=== PATIENT | female | born 1960 | race Caucasian/White ===

== ENCOUNTER → 2018-03-07 | Outpatient (CLI) | payer MEDICARE, OTHER | LOC: M.ULTRA 10:11 | DX: K76.0 Fatty (change of) liver, not elsewhere classified (principal) ==

== ENCOUNTER → 2018-12-11 | Outpatient (CLI) | payer MEDICARE, OTHER ==
--- NOTE | 2018-12-13 00:36 | SLEEP ---
[address] [address] SLEEP STUDY REPORT Name: CHRISTI CHU Room: [facility]#: [id number] Admission: 12/11/18 Attend Phys: Roro Cohen MD Discharge: Date of : 64 Report #: [id number] THIS REPORT FOR: //name// CC: Chan Cohen MD This study has been reviewed in its entirety by a board certified sleep specialist DATE OF SERVICE: 12/11/2018 SLEEP STUDY: ATTENDING PHYSICIAN: Dr. Roro Cohen. The patient is 60 years old who weighs 192 pounds with a BMI of 33. The patient's [place] score was 5. The patient underwent a sleep study performed at [facility]. During the night study, the patient spent 391 minutes in bed and slept for 220 minutes with a sleep efficiency of 56%. Sleep latency was prolonged at 148 minutes. REM sleep was 275 minutes. Overall, sleep architecture showed normal stage 1 and stage 2 sleep, increased N3 sleep and increased REM sleep, which was 31% of the total sleep time. During the night study, the patient had 1 obstructive apnea. There were no mixed or central apneas. There were 61 hypopneas. The patient's apnea hypopnea index was 17 per hour with a REM index of 47.5 per hour and a supine index of 17 per hour as well. EKG monitoring revealed an average heart rate of 56 beats per minute. No sustained arrhythmias observed. No PLMs were observed. Nocturnal oximetry study revealed an average oxygen saturation of 94% with the lowest of 82%. Ten minutes were spent in oxygen saturation of less than 89%. Due to reduced sleep efficiency, CPAP could not be initiated. IMPRESSION: 1. Moderate sleep apnea-hypopnea syndrome with worsening during REM sleep. Total AHI of 17 per hour with a REM AHI of 47 per hour. 2. Reduced sleep efficiency of 56%, resulting from sleep onset [place] [address] SLEEP STUDY REPORT Name: CHRISTI CHU Room: [facility]#: [id number] Admission: 12/11/18 Attend Phys: Roro Cohen MD Discharge: Date of : 64 Report #: [id number] 3. No clinically significant periodic limb movements. 4. Mild nocturnal hypoxia secondary to obstructive sleep apnea. RECOMMENDATIONS: 1. The patient would benefit from return to the sleep lab for in-lab titration study. 2. Once the patient is optimally treated, then follow up in 4-6 weeks to assess compliance with CPAP and to document clinical improvement. 3. Weight loss strongly advised. 4. Avoid ESTHETICIAN FACIALIST depressants. 5. Cautioned regarding driving until symptoms of sleep apnea resolve with the above recommendations. 6. If patient's insomnia is a chronic condition, then it should be treated according to the etiology. <ELECTRONICALLY SIGNED> By: Maximilian Brand MD 12/13/18 0036 [id number] Brand MD /subha
== END ==
LOC: M.SLEEPLAB 20:00
DX: G47.33 Obstructive sleep apnea (adult) (pediatric) (principal); R09.02 Hypoxemia; G47.10 Hypersomnia, unspecified

== ENCOUNTER → 2019-07-28 | Outpatient (CLI) | payer MEDICARE, OTHER ==
--- NOTE | 2019-07-29 14:33 | SLEEP ---
[address] [address] SLEEP STUDY REPORT Name: CHRISTI CHU Room: [facility]#: [id number] Admission: 07/28/19 Attend Phys: Maximilian Brand MD Discharge: Date of : 64 Report #: [id number] THIS REPORT FOR: //name// CC: Maximilian Barfield This study has been reviewed in its entirety by a board certified sleep specialist DATE OF SERVICE: 07/28/2019 NEUROLOGY CONSULTATION REFERRING PHYSICIAN: Maximilian Brand MD The patient is a 59-year-old who weighs 220 pounds with a BMI of 37.8. The patient's [place] score was 8. The patient had previous sleep study and was found to have moderate KASHIF and was referred for CPAP titration study. This was performed at [facility]. During the night study, the patient spent 387 minutes in bed and slept for 306 minutes with a sleep efficiency of 79%. Sleep latency was 47 minutes with a REM latency of 105 minutes. Sleep architecture showed normal stage 1 and stage 2 sleep, increased slow wave and increased REM sleep. EKG monitoring revealed an average heart rate of 56 beats per minute. No sustained arrhythmias observed. PLMS were seen at an index of 14 per hour and 2 per hour caused EEG arousals. The patient was started on CPAP at a pressure of 5 cm water and titrated up to 12 cm water. At that pressure, the patient had 25 minutes of sleep. This was intact supine sleep. No REM sleep was observed. The patient's AHI was reduced to 0 per hour and oxygen saturation remained above 93%. Even at lower pressure of 11 cm water, the patient had 51 minutes of supine REM sleep and AHI was still 4 per hour. IMPRESSION: 1. Moderate sleep apnea diagnosed by previous sleep study. 2. Mild periodic limb disorder movements without any significant EEG arousals. RECOMMENDATIONS: 1. CPAP at 12 cm water completely eliminated the patient's sleep apnea and should be used on a nightly basis. 2. Follow up in 4-6 weeks to assess compliance with CPAP and [place] [address] SLEEP STUDY REPORT Name: CHRISTI CHU Room: [facility]#: [id number] Admission: 07/28/19 Attend Phys: Maximilian Brand MD Discharge: Date of : 64 Report #: [id number] 3. Weight loss to the ideal body weight is recommended. 4. Avoid CLINICAL QUALITY ANALYST depressants. 5. Cautioned regarding driving until symptoms of sleep apnea resolve with the use of CPAP. <ELECTRONICALLY SIGNED> By: Maximilian Brand MD 07/29/19 1433 [id number] Brand MD /nt
== END ==
LOC: M.SLEEPLAB 20:54
DX: G47.33 Obstructive sleep apnea (adult) (pediatric) (principal); G47.30 Sleep apnea, unspecified